=== PATIENT | female | born 1980 | race Caucasian/White ===

== ENCOUNTER → 2021-05-20 | Outpatient (CLI) | payer BC ==
[~2021-05-20] MED LIST: DOCUSATE SODIU100 MG PO; IBUPROFEN800 MG PO; METHADONE HCL T10 MG PO
== END ==
LOC: GENOP 21:32
DX: O47.03 False labor before 37 completed weeks of gestation, third trimester (principal); Z87.891 Personal history of nicotine dependence; Z79.899 Other long term (current) drug therapy; Z3A.36 36 weeks gestation of pregnancy
CPT/HCPCS: 59025; 81001

== ENCOUNTER 2021-05-27 05:21 | Inpatient (IN) | payer BC ==
[~2021-05-27] VITALS: Ht 157.5 cm; Wt 63.0 kg
[2021-05-27 06:28] LABS: HEMOGLOBIN 10.2 gm/dl (12.3-15.3); RED BLOOD COUNT 3.29 M/UL (4.00-5.10); WHITE BLOOD COUNT 6.1 K/UL (4.5-11.0)
[2021-05-27] MEDS ORDERED: METHADONE HCL T10 MG PO (09:21)
[2021-05-27] MEDS ORDERED: IBUPROFEN800 MG PO (14:10)
[2021-05-27] MEDS ORDERED: DOCUSATE SODIU100 MG PO (14:10)
== END 2021-05-29 20:00 | disposition home or self-care (01) | DRG 806 ==
LOC: OB 05:21
PROVIDERS: Obstetrics & Gynecology; ADMIT Obstetrics & Gynecology
PROC: 10D07Z6 Extraction of Products of Conception, Vacuum, Via Natural or Artificial Opening (ICD-10-PCS; principal; 2021-05-27)
PROC: 10907ZC Drainage of Amniotic Fluid, Therapeutic from Products of Conception, Via Natural or Artificial Opening (ICD-10-PCS; 2021-05-27)
PROC: 3E033VJ Introduction of Other Hormone into Peripheral Vein, Percutaneous Approach (ICD-10-PCS; 2021-05-27)
PROC: 4A1HXCZ Monitoring of Products of Conception, Cardiac Rate, External Approach (ICD-10-PCS; 2021-05-27)
DX: O99.342 Other mental disorders complicating pregnancy, second trimester (principal); F11.20 Opioid dependence, uncomplicated; Z37.0 Single live birth; O41.03X0 Oligohydramnios, third trimester, not applicable or unspecified; Z20.822 Contact with and (suspected) exposure to COVID-19; Z3A.37 37 weeks gestation of pregnancy
CPT/HCPCS: 36415; 51702; 80307; 81001; 82800; 85014; 85018; 85025; 90715; J2590; J7120; U0002